=== PATIENT | female | born 1985 | race Caucasian/White ===

== ENCOUNTER → 2017-01-24 | Outpatient (CLI) | payer OTHER ==
--- NOTE | 2017-01-24 15:55 | REP ---
Clinical: Anatomical evaluation. Comparison: None . Findings: Examination demonstrates a single live intrauterine in cephalic presentation. motion is identified by technologist. Placenta is noted posteriorly and grade 08/00 without evidence for placenta previa or abruption. Amniotic fluid volume is normal. Cervix measures 4.3 cm in length and appears closed. No evidence for nuchal cord. Gestational age by current measurements 21 weeks 0 days with JOSE 06/06/2017 . FHR equals 147 beats per minute. BPD 5.0 cm 21 weeks 1 day HC 18.7 cm 21 weeks 0 days AC 16.3 cm 21 weeks 2-day FL 3.7 cm 21 weeks 5 days HL 3.4 cm 21 weeks 5 days HC/AC ratio 1.15 Estimated weight 424 grams ( 60th percentile). Anatomical assessment demonstrates normal structures including cranium, cavum, cerebellum/posterior fossa, nose and lips, lungs, diaphragm, stomach, cord insertion/three-vessel cord, kidneys/bladder, and upper extremities. Bilateral choroid plexus cysts measuring approximately 4 mm are identified. Limited evaluation of the facial profile, heart/ventricular outflow tracts, spine and lower extremities. Impression: Single live intrauterine in cephalic presentation. Anatomical limitations and cord plexus cysts as noted above may warrant reevaluation and follow-up. Signed by Den Cordero MD 01/24/2017 12:59 P
== END ==
LOC: M SMT 10:34
PROVIDERS: ATTEND Specialist
DX: Z34.82 Encounter for supervision of other normal pregnancy, second trimester (principal)

== ENCOUNTER → 2017-01-26 | Outpatient (REF) | payer OTHER | LOC: M LAB REF 16:55 | PROVIDERS: ATTEND Obstetrics & Gynecology | DX: Z34.82 Encounter for supervision of other normal pregnancy, second trimester (principal); Z36.89 Encounter for other specified antenatal screening ==

== ENCOUNTER → 2017-03-02 | Outpatient (CLI) | payer OTHER | LOC: M RAD 09:44 | DX: Z34.82 Encounter for supervision of other normal pregnancy, second trimester (principal) | CPT/HCPCS: 76816 ==